=== PATIENT | male | born 1935 | race Caucasian/White ===

== ENCOUNTER 2016-08-15 18:00 | Inpatient (IN) | payer MEDICARE ==
[~2016-08-15] VITALS: Ht 177.8 cm; Wt 86.8 kg
--- NOTE | ~2016-08-15 | CATH ---
Cardiac Diagnostic + PCI Report Demographics Patient Name ALEXIS Mcclure Gender Male Date of 1935 Age 80 year(s) Patient Number [id number] Date of Study 08/18/2016 Visit Number [id number] Room Number G6321 [place] [id number] Ht 177.8 cm Wt 91.17 kg Referring Pia Navarrete MD Primary Physician Physician Performing Ya Secondary Physician Physician Monica BROWN Diagnostic Ya Assisting Physician Physician Monica BROWN Interventional Ya Physician Accounting Consultant Physician Monica BROWN Findings and Conclusions Diagnostic Findings and Conclusion LVEDP 8 Distal RCA stent. Mid RCA flap lesion with sluggish distal flow. So it was stented as well. Diagnostic Recommendations PCI of distal and mid RCA Interventional Findings and Conclusion Successful PCI of the distal RCA coronary artery using a Drug Eluting stent. Successful PCI of the mid RCA coronary artery using a Bare Metal stent. Interventional Recommendations DAPT x one year. Aggressive secondary precautions measures. Staged PCI of mid LAD lesion in 6 t o 8 weeks. Procedure Description The patient was brought to the diagnostic cardiac catheterization-EP laboratory in the fasting, non-sedated state. Informed consent was obtained in the written and verbal form after the risks and benefits were explained. The patient had no further questions and agreed to proceed. The planned puncture-incision site(s) were shaved and prepped with ChloraPrep and draped in the usual sterile manner. Conscious sedation, supplemental oxygen, and pain control medications were delivered by a registered nurse under physician guidance. Surface ECG rhythm, blood pressure measurement, and pulse oximetry were monitored throughout the procedure. Arterial access. The access site was infiltrated with lidocaine. The vessel was entered with the Seldinger technique. A sheath was advanced into the vessel and used for catheter placement. Selective left coronary angiography. A catheter was advanced into the left coronary vessel ostium under Fluoroscopic guidance. Contrast was injected by hand. Images were obtained in multiple projections. Selective right coronary angiography. A catheter was advanced into the right coronary vessel ostium under fluoroscopic guidance. Contrast was injected by hand. Images were obtained in multiple projections. Left heart catheterization. A catheter was advanced across the aortic valve to the left ventricle under fluoroscopic guidance. Resting hemodynamics were obtained. Angioplasty and Stent Placement: A guiding catheter was used to intubate the vessel. A 0.14 wire was then used to cross the lesion. A balloon catheter was placed across the lesion and inflated. The balloon catheter was then removed. A Drug Eluting Stent and bare metal was placed and inflated. Post placement angiograms were performed. Arterial artery hemostasis was achieved. The patient was transferred to a regular nursing floor via cart accompanied by a nurse. The patient left the laboratory in stable condition. Diagnostic Cath Status: Urgent Interventional Cath Status: Urgent Procedure Procedure Type Diagnostic procedure:Angiography:, Coronary Angios w/[facility] PCI procedure:Drug Eluting Coronary Stent:, RCA, Bare Metal Coronary Stent:, RCA, PTCA:, RCA Indications: Non-ST elevation WV. The procedure was explained in detail to the patient. Risks, complications and alternative treatments were reviewed. Written consent was obtained. Medications Reviewed with Patient prior to Procedure. Angiographic Findings Dominance: Right Cardiac Arteries and Lesion Findings LMCA: Abnormal. Lesion on LMCA: 20% stenosis . LAD: Abnormal.Distal 2/3 of LAD is very Small Lesion on Mid LAD: 70% stenosis .The lesion was diffuse. LCx: Abnormal.The 1st ob Ana is a small caliber vessel. The 2nd ob Ana is a small caliber vessel. The 3rd ob Ana is a small caliber vessel. The 4th ob Ana is a small caliber vessel. The 5th ob Ana is a small caliber vessel. The 6th ob Ana is a large caliber vessel. Has a patient stent The 3rd ob Ana appears normal.There is a previous stent on Mid CX Mid subsection showing wide patency. There is a previous stent on 3rd Ob Ana Proximal subsection showing wide patency. Lesion on Mid CX: 50% stenosis .The lesion was diffuse. RCA: Abnormal.The R PL has moderate diffuse irregularities. The R PDA has a total occlusion in the proximal portion of the vessel. Lesion on Dist RCA: Distal subsection.90% stenosis 12 mm length reduced to 0%. Pre procedure KISHA III flow was noted. Post Procedure KISHA III flow was present. The guidewire cross was successful.The lesion was diagnosed as a moderate risk lesion.The lesion showed evidence of thrombus presence.Culprit lesion. Devices used - Luge Wire .014 x 182. Number of passes: 1. - Emerge Balloon 2.5 x 12. 1 inflation(s) to a max pressure of: 6 jade. - Promus Premier 3.0 x 12 Stent. 1 inflation(s) to a max pressure of: 11 jade. Lesion on Mid RCA: Mid subsection.20% stenosis 16 mm length reduced to 0%. Pre procedure KISHA II flow was noted. Post Procedure KISHA III flow was present. The guidewire cross was successful.The lesion was diagnosed as a moderate risk lesion.The lesion showed evidence of thrombus presence. Treatment results:Dissection occurred while intervening.It was treated with a stent. Devices used - [place] Catheter. Number of passes: 1. - 4.0 x 16 Rebel Stent. 1 inflation(s) to a max pressure of: 11 jade. Lesion on 1st RPL: 40% stenosis .The lesion was diffuse. Lesion on R PDA: Ostial.100% stenosis .Chronic total occlusion. Comments:retro grade flow from left system Cardiac Collaterals - Goodcollateral flow from the Dist CX to the R PDA. Coronary Tree Procedure Data Procedure Date Date: 08/18/2016Start: 01:41 PMEnd: 03:33 PM Entry Locations - Retrograde Percutaneous access was performed through the Right Femoral artery (Primary location). A 7 Fr sheath was inserted. Unsuccessful closure attempts were performed using: Perclose ProGlide (Lucas) and Manual Compression. Hemostasis was successfully obtained using a Femstop. Closure Comments: Perclosed failed. Manual pressure by Solomon. Femostop placed at 60mmHg. Procedure Medications Order and Administration + + + + + !Time !Medication !Dosage !Route ! + + + + + !08/18/2016 01:36 !Fentanyl !50 mcg !I.V. ! !PM ! ! ! ! + + + + + !08/18/2016 01:41 !Oxygen !2 l/min !NC ! !PM ! ! ! ! + + + + + !08/18/2016 01:49 !D5W !75 ml/hr !I.V. drip ! !PM ! ! ! ! + + + + + !08/18/2016 02:06 !Angiomax (Bivalirudin) !65 mg !I.V. bolus ! !PM !(ACC_5) ! ! ! + + + + + 08/18/2016 02:06 !Angiomax (Bivalirudin) !1.75 mg/kg/hr!I.V. drip ! !PM !(ACC_5) ! ! ! + + + + + !08/18/2016 02:21 !Integrilin (ACC_7) !15.8 mg !I.V. bolus ! !PM ! ! ! ! + + + + 08/18/2016 02:26 !Atropine !0.5 mg !I.V. ! !PM ! ! ! ! + + + + + !08/18/2016 02:27 !D5W !300 ml !I.V. drip ! !PM ! ! ! ! + + + + 08/18/2016 02:29 !Nitroglycerin !200 mcg !I.C. ! !PM ! ! ! ! + + + + + 08/18/2016 02:31 !Integrilin (ACC_7) !15.8 mg !I.V. bolus ! !PM ! ! ! ! + + + + + !08/18/2016 02:33 !Integrilin (ACC_7) !2 mcg/kg/min !I.V. drip ! !PM ! ! ! ! + + + + + !08/18/2016 02:53 !Angiomax (Bivalirudin) ! !I.V. drip ! !PM !(ACC_5) ! ! ! + + + + + !08/18/2016 02:54 !Brilinta (Ticagrelor) !180 mg !P.O. ! !PM !(ACC_20) ! ! ! + + + + + !08/18/2016 02:54 !Baby Aspirin (ACC_4) !324 mg !P.O. ! !PM ! ! ! ! + + + + + Devices Used - A6 Fr. BS JR 4 Diag. Catheterwas used for:Right coronary angiography. - A6 Fr. BS JL 4 Diag. Catheterwas used for:Left coronary angiography. - A6 Fr. JR4 Guide Catheterwas used for:RCA Intervention. - A6 Fr. Guidliner. Contrast Material - Isovue 420782 ml Fluoroscopy Time: Diagnostic: 20:30 minutes. Total: 20:30 minutes. Fluoroscopy Dose: Diagnostic: 4191 mGy. Total: 4191 mGy. Estimated Blood Loss: 15 ml. Additional [facility] PCI Information PCI Indication:PCI for high risk Non-STEMI or unstable angina. Medical History Allergies - Other:(influenza vaccine). Risk Factors The patient risk factors include:prior PCI on 12/06/2006;cerebrovascular disease, hypertension, family history of premature CAD, insulin-treated diabetes mellitus, chronic lung disease, last creatinine: 1.5 mg/dl, creatinine clearance: 49.81 ml/min, dyslipidemia, former tobacco use and prior W[place] . Admission Data Admission Date: 08/15/2016 Admission Time: 10:34 PM Admit Source: Emergency department Insurance Payors: Medicare. Admission Medications + +------+------+ + + + + !Medication !Dosage!Times !Last !Last !Administered !Comments ! ! ! !Per !Delivery !Delivery ! ! ! ! ! !Day !Date !Time ! ! ! + +------+------+ + + + + !Beta ! ! ! ! !Yes ! ! !Becca ! ! ! ! ! ! ! !(any) ! ! ! ! ! ! ! + +------+------+ + + + + Clinical Evaluation Leading to Procedure - Anti-anginal medications were prescribed during the past two weeks. The medication is: Beta Blockers. Hemodynamics Condition: Rest O2 Consumption: Estimated: 256.28Heart Rate: 93 bpm Pressures (mmHg) +-----+ + !Site !Pressure ! +-----+ + !LV !117/2 ,9 ! +-----+ + !LV !126/3 ,7 ! +-----+ + !AO !129/48 (82) ! +-----+ + !LV !128/3 ,8 ! +-----+ + !AO !124/47 (79) ! +-----+ + !AO !137/51 (87) ! +-----+ + !AO !122/36 (64) ! +-----+ + Valve Gradients and Areas + +---------+---------+---------+ +---------+ + !Valve !Peak !Mean !Area !Index !Flow !Source ! + +---------+---------+---------+ +---------+ + !Aortic !0 !0 ! ! ! ! ! + +---------+---------+---------+ +---------+ + !Aortic !0 !0 ! ! ! ! ! + +---------+---------+---------+ +---------+ + Shunts Oxygen Values O2 Capacity 116.96 O2 Consumption 256.28 Discharge Data Discharge Date: 08/19/2016 Hospital Status: Inpatient Signatures dtt: Monica Pandya dtd: 08/18/16 1341 Physician Self Edit
--- NOTE | ~2016-08-15 | DS ---
PATIENT'S NAME: CHARLI ESPINOZA [facility] AGE: 80 Y [address] ROOM: G6321 [place], [place] [address] LOCATION: GPCU ADMIT DATE: 08/15/2016 Discharge Summary DISCHARGE DATE: 08/19/2016 FAMILY PHYSICIAN: Landon Palacio MD ATTENDING PHYSICIAN: Syed Alba CONTINUATION: LABORATORY DATA: Total cholesterol 164, triglyceride 161, HDL 39, LDL 93. INR 1.02. UA: Leukocytes negative, nitrites negative, blood negative, serum iron 32, TIBC 180, transferrin saturation 18, vitamin B12 of 397. Cortisol test 17, then 30 minutes 27.5, and an hour 33.6. Homocystine level 24.6. MICROBIOLOGY DATA: H. pylori negative. Stool for occult blood negative x2. RADIOLOGY DATA: Chest x-ray is reported as no acute infiltrate identified on the frontal chest study. Stable radiographic appearance since prior imaging. CT abdomen and pelvis is reported as scattered colon diverticula with no CT findings of diverticulitis. Past surgery at the sigmoid colon, prostate enlargement, vascular calcifications, atrophic changes of the kidneys. No free air with no findings of bowel obstruction or appendicitis. Echocardiogram: Ejection fraction 65% to 70%, diastolic grade 1 dysfunction, mild LVH, inferior hypokinesis, mild thickening of the mitral valve leaflets, mild mitral annular calcification, PA pressure 47.19. HOSPITAL COURSE: For history of present illness, please take a look at H and P, which was done by Dr. Alba. The patient was admitted to progressive care unit with a presentation of nausea and vomiting as well as abdominal pain. Because of this, the patient did get a GI consult. After the patient was evaluated by GI, they recommended no intervention as the patient had recently had an EGD and a colonoscopy done about 2 to 3 weeks prior to admission. The EGD essentially showed chronic gastritis, and the colonoscopy was essentially unchanged, which showed some diverticula. The patient also did get a CT abdomen and pelvis, which did not show anything acute that could be responsible for his nausea and vomiting and also his abdominal pain. By the next day of his hospital stay, his symptoms had resolved, and we did also get a Cardiology consult given the elevation in his troponin. Adrenal insufficiency was also ruled with cosyntropin test given his symptom of nausea, vomiting, as well as abdominal pain, and given the fact that the had abruptly stopped the prednisone, which the patient was on chronically for his polymyositis. However, the patient was already on a taper dose of 0.5 mg. However, the cosyntropin test was negative. He did also develop some pancytopenia, which was attributed to his methotrexate, which he is on for his polymyositis. However, the pancytopenia did improve prior to discharge. A PATIENT'S NAME: CHARLI ESPINOZA [facility] AGE: 80 Y [address] ROOM: [address] [place] [id number] LOCATION: GPCU ADMIT DATE: 08/15/2016 Discharge Summary DISCHARGE DATE: 08/19/2016 FAMILY PHYSICIAN: Landon Palacio MD ATTENDING PHYSICIAN: Syed Alba day prior to discharge, the patient was taken into the label remover and a left heart catheterization was done with stent placement, and he was subsequently also discharged home on Brilinta. The procedure was well tolerated by the patient, and first day postprocedure, the patient was in a stable clinical condition. His kidney function remained stable following the cardiac cath even though he did present with acute kidney injury on chronic kidney disease, which improved with this hospital stay. First day postprocedure, vital signs remained stable. Kidney function remained stable. The patient had no complaints, and he was discharged home. The patient also did get an overnight trend ox done during his hospital stay as he required most nights at least 1 L of nasal cannula. However, he did not qualify for night use of oxygen. DISCHARGE INSTRUCTIONS: Includes the patient is to follow with Dr. Fontana in the next 1 week to evaluate the patient for abdominal angina, and also the patient is to follow up with Dr. Pandya in the next 2 weeks and with his family doctor in the next 1 week as well. MEDICATIONS ON DISCHARGE: 1. Potassium chloride 20 mEq p.o. daily, dose change. 2. Allopurinol 300 mg p.o. daily. 3. Coreg 12.5 mg p.o. twice daily. 4. Peridex 15 mL p.o. twice daily. 5. Vitamin D 1000 units p.o. daily. 6. Aspirin 81 mg p.o. daily, new medication. 7. Lipitor 80 mg p.o. daily, new medication. 8. Abreva as directed, new medication. 9. Insulin aspartate 18 units subcu 3 times daily with meals. 10. Insulin detemir 40 units subcu q.h.s. 11. Hydrocortisone cream topically twice daily, new medication. 12. Omeprazole 40 mg p.o. daily. 13. Zoloft 100 mg p.o. daily. 14. Flomax 0.4 mg p.o. daily. 15. Methotrexate 17.5 mg p.o. every 7 days. 16. Prednisone acetate 1 drop every day. 17. Brilinta 90 mg p.o. twice daily, new medication. 18. Timolol 1 drop every day. 19. Folic acid 800 mcg p.o. daily. 20. MiraLAX 17 g p.o. twice daily. 21. Bumex 1 mg p.o. daily. LUIS TAYLOR MD PATIENT'S NAME: CHARLI ESPINOZA [facility] AGE: 80 Y [address] ROOM: [place] [address] [facility] ADMIT DATE: 08/15/2016 Discharge Summary DISCHARGE DATE: 08/19/2016 FAMILY PHYSICIAN: Landon Palacio MD ATTENDING PHYSICIAN: Syed Alba/darlyn /[id number] d: 08/19/16 2307 t: 08/27/16 1613, DISCHARGE SUMMARY
--- NOTE | ~2016-08-15 | ECHO ---
Transthoracic Echocardiography Report (TTE) Demographics Patient Name CHARLI ESPINOZA Date of Study 08/16/2016 Patient Number [id number] Visit Number [id number] Date of 1935 Room Number G6321 Accession Number [id number] Gender Male Age 80 year(s) Referring Pia Navarrete MD Police Radio Dispatcher Amber Haile [facility], Physician Anjali Mathis MD RVT Physician Interpreting Patti Storm Credit Relationship Manager Physician Clemente BROWN Supervising Ordering Physician Anjali Mathis MD, MD/MLP Nurse Stress Cook Pie Conclusions Contractility Score Summary Summary The estimated left ventricular ejection fraction is 65-70%. Mild concentric left ventricular hypertrophy. Diastolic assessment reveals Grade I diastolic dysfunction. Inferior hypokinesis. Mild mitral annular calcification. Mild thickening of the mitral valve leaflets. Mild-moderate mitral regurgitation by color Doppler. There is mild to moderate aortic regurgitation by color Doppler. The aortic valve is mildly sclerotic. Mild tricuspid regurgitation by color Doppler. There is mild pulmonary hypertension. The pulmonary pressure (RVSP) is 47.19 mmHg. Procedure Type of Study TTE procedure:2D Echocardiogram. Procedure Date Date: 08/16/2016 Start: 11:13 AM Study Location: Inpatient Portable Technical Quality: Adequate visualization Indications:Elevated Troponin. Patient Status: Routine HR: 89 bpm BP: 116/56 mmHg M-Mode/2D Measurements LV Diastolic Dimension: 3.48 cm LV Systolic Dimension: 1.89 cm LV Septum Diastolic: 1.27 cm LV PW Diastolic: 1.17 cm AO Root Dimension: 4.1 cm Cardiac Output: 5.92 l/min AV Cusp Separation: 1.9 cm LA volume: 62 ml RV Base: 2.92 cm LVOT: 2 cm RV Mid: 2.59 cm LVOT VTI: 21.2 cm RV Length: 6.32 cm LV Stroke volume: 66.57 ml TDI-S': 12.5 cm/s Doppler Measurements AV Peak Velocity: 1.09 m/s MV Peak E-Wave: 0.81 m/s AV Peak Gradient: 4.75 mmHg MV Peak A-Wave: 1.3 m/s AV Mean Gradient: 3 mmHg MV E/A Ratio: 0.62 LVOT Peak Velocity: 1.04 m/s MV P1/2t: 79 msec AV P1/2t: 296 msec TR Gradient:39.19 mmHg PV Peak Velocity: 1.35 m/s Estimated RAP:8 mmHg PV Peak Gradient: 7.29 mmHg Estimated RVSP: 47 mmHg Estimated PASP: 47.19 mmHg E' Septal Velocity: 0.05 m/s A' Septal Velocity: 0.12 m/s E' Lateral Velocity: 0.05 m/s A' Lateral Velocity: 0.12 m/s Findings Left Ventricle Mild concentric left ventricular hypertrophy. Diastolic assessment reveals Grade I diastolic dysfunction. Inferior hypokinesis. Right Ventricle Normal right ventricle structure and function. Left Atrium The left atrium is mildly dilated by LA volume index measurement. Right Atrium Normal right atrial size. Mitral Valve Mild mitral annular calcification. Mild thickening of the mitral valve leaflets. Mild-moderate mitral regurgitation by color Doppler. Aortic Valve There is mild to moderate aortic regurgitation by color Doppler. The aortic valve is mildly sclerotic. Tricuspid Valve Mild tricuspid regurgitation by color Doppler. There is mild pulmonary hypertension. The pulmonary pressure (RVSP) is 47.19 mmHg. Pulmonic Valve Normal pulmonic valve structure and function. Trivial pulmonic valve regurgitation by color Doppler. Pericardial Effusion Trivial posterior pericardial effusion. Miscellaneous The aortic root appears mildly dilated. The maximum diameter measures 4.1 cm. The ascending aorta appears mildly dilated. The maximum diameter measures 3.6 cm. Pleural Effusion No evidence of pleural effusion. Contractility Score LV regional wall motion:(0-Non visualized 1-Normal 2-Hypokinesis 3-Akinesis 4-Dyskinesis 5-Aneurysm) Signature dtt: Ansley Armstrong dtd: 08/16/16 1113 Physician Self Edit
--- NOTE | ~2016-08-15 | CON ---
PATIENT'S NAME: CHARLI OLIVAREZ [facility] AGE: 80 Y [address] ROOM: [address] [place], [place] [address] LOCATION: GPCU ADMIT DATE: 08/15/2016 Consultation DISCHARGE DATE: FAMILY PHYSICIAN: SASHA DU MD ATTENDING PHYSICIAN: MARIPOSA MITCHELL DATE OF CONSULTATION: 08/16/2016 REFERRING PHYSICIAN: KUNAL NORRIS MD Patient of the hospitalist. Dear Colleague: Thank you for asking me to see Mr. Olivarez whom I have taken care of in the past. He was feeling reasonably well about 3 to 4 months back. Prior to that, he had diagnosis of polymyositis made by Dr. Curtis, and later Dr. Gilman has been treating him for that with methotrexate and prednisone. This has been going on for about 10 years, and his prednisone dose has been slowly reduced and taken away. For the past 3 to 4 months, he has had abdominal pain, anemia, and recurrent hospitalization for abdominal pain with negative upper GI, lower GI workup, and CT of the abdomen. He has been treated as diverticulosis and his abdominal pain has reoccurred. He has also been anemic and has required 2 blood transfusions. At this time, when he came in with abdominal pain, a troponin elevation of significance was noted, and his echo showed mild LVH with inferior wall hypokinesia. This is the main reason for the consultation. His abdominal pain is now better, and he has an occasional diarrhea and some vomiting. The patient denies any chest pains or shortness of breath. He has been in functional class II with no paroxysmal nocturnal dyspnea or orthopnea. There is no history of lightheadedness, syncope, or palpitation. He is dizzy. There is some ankle swelling. The patient has a history of hypertension, type 2 diabetes, elevated cholesterol. He quit smoking 30-40 years ago. He has significant family history of premature coronary artery disease in his father who had an HI at age of 57. The patient had an HI in 2002 and had a PCI done at that time. Four years later, he had another PCI done. He has been doing reasonably well since then. He has been completely off statins at this time. He denies rheumatic fever. He has been told of a heart murmur. He has a history of heart failure, but no atrial fibrillation. PATIENT'S NAME: CHARLI OLIVAREZ [facility] AGE: 80 Y [address] ROOM: [place] [address] LOCATION: GPCU ADMIT DATE: 08/15/2016 Consultation DISCHARGE DATE: FAMILY PHYSICIAN: SASHA DU MD ATTENDING PHYSICIAN: MARIPOSA MITCHELL MEDICATIONS: 1. Coreg 12.5 b.i.d. 2. Omeprazole 40 mg a day. 3. Tamsulosin 0.4 mg a day. 4. Sertraline 100 mg daily. 5. Methotrexate 2.5 mg 7 tablets every 7 days. 6. Insulin Levemir 40 units subcu at bedtime. 7. Prednisolone drops. 8. Timolol drops. 9. Vitamin D3 1000 units a day. 10. Folic acid 800 mcg a day. 11. MiraLAX. 12. Insulin 18 units subcu t.i.d. 13. Allopurinol 300 mg a day. 14. Chlorhexidine. 15. Bumex 2 mg a day. 16. Cholecalciferol. 17. Potassium chloride 20 mEq a day. ALLERGIES: INFLUENZA VIRUS VACCINE. PAST MEDICAL HISTORY: 1. Right leg fracture x3. 2. Both shoulder surgery. 3. Retinal detachment operated bilaterally. 4. Bilateral cataract extraction. 5. Legally blind. 6. Polyp and part of the colon removed. 7. Finger amputated. 8. Toe amputated. 9. Hydrocele. 10. BPH. 11. CTS. 12. COPD. SOCIAL HISTORY: The patient is . He denies abusing alcohol. His appetite and weight have not been the best, and he has lost about 12 pounds in a month since his colonoscopy has developed some blisters in his mouth. His sleep is fair. FAMILY HISTORY: Positive for premature coronary artery disease. REVIEW OF SYSTEMS: PATIENT'S NAME: CHARLI OLIVAREZ [facility] AGE: 80 Y [address] ROOM: [place] [address] LOCATION: GPCU ADMIT DATE: 08/15/2016 Consultation DISCHARGE DATE: FAMILY PHYSICIAN: SASHA DU MD ATTENDING PHYSICIAN: MARIPOSA MITCHELL 12-point review of systems reveal: 1. Some dementia. 2. TIA. 3. CVA. 4. Nose runs. 5. Tinnitus. 6. Hard of hearing. 7. Slow urinary stream. 8. Arthritis. 9. Skin source. 10. Pressure sores. PHYSICAL EXAMINATION: VITAL SIGNS: On examination, his blood pressure is 120/80, heart rate is in the 90s and regular, respirations 18, afebrile. HEENT: Normal. NECK: Supple with no JVD, thyromegaly, lymphadenopathy, or carotid bruit. HEART: PMI is not well located. First and second heart sounds are regular. There are no added sounds. He does have a grade 2/6 systolic murmur best heard in the left sternal edge. CHEST: Clear to auscultation. ABDOMEN: Soft and nontender. EXTREMITIES: Reveal no edema. CENTRAL NERVOUS SYSTEM: Intact. ASSESSMENT: 1. Dvo-PZ-qpnridc elevation myocardial infarction as his 12-lead EKG does not reveal ST elevation. 2. Abdominal pain, nausea, and vomiting. RECOMMENDATION: When his creatinine is somewhat improved from 1.8 where he is at now and his anemia is a little bit better, I will probably recommend doing a catheterization. At this time, he does not have any chest pain, so we will monitor him carefully. As to when and how the oqr-UJ-[id number] elevation HI occurred is hard to tell. Again, I appreciate this opportunity to participate in the care of Mr. Olivarez. DENIS ESPINAL MD AMK/donovanl PATIENT'S NAME: CHARLI OLIVAREZ [facility] AGE: 80 Y [address] ROOM: [address] [place] [address] LOCATION: GPCU ADMIT DATE: 08/15/2016 Consultation DISCHARGE DATE: FAMILY PHYSICIAN: SASHA DU MD ATTENDING PHYSICIAN: MARIPOSA MITCHELL /[id number] d: 08/17/16 0036 t: 08/22/16 1215, CONSULTATION REPORT
--- NOTE | ~2016-08-15 | CON ---
PATIENT'S NAME: CHARLI ESPINOZA [facility] AGE: 80 Y [address] ROOM: [address] [place], [place] [address] LOCATION: GPCU ADMIT DATE: 08/15/2016 Consultation DISCHARGE DATE: FAMILY PHYSICIAN: SASHA DU MD ATTENDING PHYSICIAN: MARIPOSA MITCHELL DATE OF CONSULTATION: 08/16/2016 REFERRING PHYSICIAN: KUNAL NORRIS MD REASON FOR CONSULTATION: Nausea, vomiting, and abdominal pain. HISTORY OF PRESENT ILLNESS: This is a very pleasant 80-year-old gentleman, who is a slight poor historian. His is at bedside as most of history was obtained from the . The patient states in June, he was hospitalized at [facility] with diverticulitis. He did require blood transfusion for unclear source. The patient subsequently had an endoscopy as well as a colonoscopy on July 25, 2016, per Dr. Virgilio Whitaker. At that time, the patient was found to have antral hemorrhagic gastritis as well as anastomosis site evaluated at 18 cm from previous resection. Biopsies were negative for H. pylori as well as celiac disease. On August 02, he subsequently had 2 more units of packed red blood cells as it remains unclear for the anemia. The patient currently denied any nausea or vomiting. Since being admitted, he denies any fever or chills. He does state that his appetite has slightly decreased. He denies any obvious signs of coffee-grounds emesis, hematemesis, hematuria, or hematochezia. Since undergoing the upper endoscopy, he did develop vesicles and blisters that ruptured in both his upper and lower lips as he does state that he has some painful swallowing secondary to these blisters. The patient's daughter was at bedside, stated that this began at the back of his mouth and has moved forward since. He currently denies any chest pain, chest pressure, shortness of breath, fever, or chills. PAST MEDICAL HISTORY: Coronary artery disease, status post 2 drug-eluting stents placed in the past, one placed in 2002 and second was placed in 2006; history of myocardial infarction in 2002; hyperlipidemia; reported history of CHF; questionable obstructive sleep apnea; questionable COPD; chronic kidney disease stage 3, diabetes mellitus type 2; hypertension; prior history of ischemic stroke without any obvious neurological deficit; and benign prostatic hypertrophy. PAST SURGICAL HISTORY: Recent upper endoscopy and colonoscopy on July 25, 2016; status post drug- eluting stent in the heart, 2 stents, in 2002 and 2006; bilateral hydrocele, status post surgery; status post polypectomy and colectomy according to the PATIENT'S NAME: CHARLI ESPINOZA [facility] AGE: 80 Y [address] ROOM: [address] [place], [place] [address] LOCATION: [facility] ADMIT DATE: 08/15/2016 Consultation DISCHARGE DATE: FAMILY PHYSICIAN: SASHA DU MD ATTENDING PHYSICIAN: MARIPOSA MITCHELL patient's in the past, though these reports are unavailable to us at this time; status post left rotator cuff surgery in the past; and history of amputation of the left fifth toe in the past due to osteomyelitis. SOCIAL HISTORY: The patient is . He denies any current tobacco use. He is a former smoker, though quit many years ago. He denies any alcohol or illicit drug use. FAMILY HISTORY: Both parents had coronary artery disease. He denies any known gastrointestinal diseases or cancer. ALLERGIES: INFLUENZA VIRUS. CURRENT MEDICATIONS: Please refer to the medication administration record. REVIEW OF SYSTEMS: All point review of systems was completed. All were negative except for those identified in the history of present illness. PHYSICAL EXAMINATION: GENERAL: A pleasant 80-year-old male, who appears to be in no acute distress. VITAL SIGNS: Temperature 97.8, pulse of 85, respirations of 14, blood pressure 134/63, and oxygen saturations 98% on 1 L. SKIN: [place], warm, and dry. No jaundice. HEENT: Head is normocephalic and atraumatic. Pupils are equal, round, and reactive to light. Sclerae are clear. Nonicteric. Oral mucosa is pink. Vesicles and redness noted to open sores in mouth. NECK: Soft and supple. CARDIOVASCULAR: Regular. Normal S1 and S2. RESPIRATORY: Respirations even and unlabored. LUNGS: Clear to auscultation. ABDOMEN: Soft. Round. Mildly tender in the right and left lower quadrant. No rebound, rigidity, or guarding noted. Bowel sounds positive x4 quadrants. MUSCULOSKELETAL: No muscle weakness or atrophy. EXTREMITIES: No clubbing, cyanosis, or edema. NEUROLOGIC: Grossly nonfocal. LABS AND DIAGNOSTICS: Cardiac enzymes are elevated. On admission, troponin I was 1.130. BNP was 2531. White blood cell count 4.5; hemoglobin on admission was 9.8, down to 8.5; hematocrit of 30.3; MCV of 100.0; and platelets of 104. Chemistry panel PATIENT'S NAME: CHARLI ESPINOZA [facility] AGE: 80 Y [address] ROOM: [address] [place], [place] [address] LOCATION: GPCU ADMIT DATE: 08/15/2016 Consultation DISCHARGE DATE: FAMILY PHYSICIAN: SASHA DU MD ATTENDING PHYSICIAN: MARIPOSA MITCHELL includes a glucose of 143, BUN of 58, creatinine of 1.8, sodium 142, potassium of 4.5, chloride 104, and CO2 of 29. Liver enzymes are within normal limits. Pro-time 10.7, INR is 1.02, and PTT of 26. Current iron studies are pending at this time. CRP is 8.51. TSH is 0.447. Procalcitonin is 0.15. The patient also underwent a CT of the abdomen and pelvis completed on admission. This did show scattered colon diverticula with no CT findings of diverticulitis, past surgery of the sigmoid colon, prostate enlargement, vascular calcifications, atrophic changes of the kidneys, no free air with no findings of bowel obstruction or appendicitis. ASSESSMENT AND PLAN: Again, this is a very pleasant 80-year-old male, who was admitted with nausea, vomiting, and abdominal pain. 1. Nausea. The patient states that this is subsided at this point. The patient currently had been on omeprazole at home, though we do recommend changing this to Protonix as the patient was recently found to have antral gastritis with hemorrhage. 2. Anemia. Clear etiology of the patient's anemia is unknown. Further workup to be completed. Current iron studies are pending at this time. Some blood loss may be secondary to his antral gastritis, though further workup is warranted after receipt of complete laboratory. 3. Lower abdominal pain. CT was negative for any acute findings. Continue monitoring at this time. 4. Elevated cardiac enzymes. The patient is pending Cardiology consultation. At this time, no intervention is warranted as he recently underwent an upper endoscopy and colonoscopy. We will await for further recommendations from Cardiology for further intervention as well. Thank you for this consult. TERRANCE CURRY APRN FOR MD STANISLAW LAUGHLIN/modl /[id number] d: 08/16/161955 t: 08/22/16 1514, CONSULTATION REPORT
--- NOTE | ~2016-08-15 | DS ---
PATIENT'S NAME: CHARLI ESPINOZA [facility] AGE: 80 Y [address] ROOM: [place] [address] LOCATION: GPCU ADMIT DATE: 08/15/2016 Discharge Summary DISCHARGE DATE: 08/19/2016 FAMILY PHYSICIAN: Landon Palacio MD ATTENDING PHYSICIAN: Syed Alba PRIMARY DIAGNOSES: 1. Non-ST segment elevation myocardial infarction. 2. Pancytopenia. 3. Cold ulcers. 4. Nausea and vomiting. 5. Hypernatremia. 6. Acute kidney injury on chronic kidney disease, stage 3. 7. Coronary artery disease. 8. Acute hypoxic respiratory failure. PRINCIPAL PROCEDURES DONE FOR PATIENT: Include 1. Left heart catheterization with stent placement by Dr. Pandya. 2. Also, transfusion with one unit of PRBC. LABORATORY DATA: Labs on admission: ABG: The pH of 7.39, pCO2 of 51, pO2 of 38, and saturations of 71%. Troponin highest level was 1.130, CPK was 83, and proBNP on admission was 2531 with B12 of 2318. WBC on admission was 10.4 and prior to discharge was 6.2, last level obtained was 3.6. H and H on admission was 9.8/30.3 and prior to discharge was 9.1/28.2. Platelets on admission was 154 and prior to discharge was 107. Creatinine on admission was 1.8 and prior to discharge was 1.4, sodium on admission was 142; highest level obtained was 146; and prior to discharge was 144, potassium on admission was 4.5 and was stable throughout the hospital stay. Liver function test was stable throughout the hospital stay. Upon discharge, AST was 46, ALT was 25, and alkaline phosphatase was 53. ESR was 26. Hemoglobin A1c was 7.0. Lipid Panel: Total cholesterol was 164. DICTATION ENDS HERE PATIENT'S NAME: CHARLI ESPINOZA [facility] AGE: 80 Y [address] ROOM: [place] [address] LOCATION: GPCU ADMIT DATE: 08/15/2016 Discharge Summary DISCHARGE DATE: 08/19/2016 FAMILY PHYSICIAN: Landon Palaico MD ATTENDING PHYSICIAN: Syed Alba MD FRANCINE NIXON/darlyn /[id number] d: 08/19/16 2248 t: 08/27/16 1611, DISCHARGE SUMMARY
--- NOTE | ~2016-08-15 | ER ---
PATIENT'S NAME: CHARLI SEPINOZA [facility] AGE: 80 Y [address] ROOM: [address] [address] LOCATION: [facility] ADMIT DATE: 08/15/2016 ER/Outpatient Report DISCHARGE DATE: FAMILY PHYSICIAN: SASHA DU MD ATTENDING PHYSICIAN: MARIPOSA MITCHELL CHIEF COMPLAINT: Abdominal pain, nausea, and vomiting. HISTORY OF PRESENT ILLNESS: This patient is an 80-year-old male who comes in with a 2 to 3-day history of generalized abdominal pain, nausea, and vomiting. The patient is vomiting 2 to 3 times a day. Unable to keep things down on what he normally does. The patient has had some problems with bowel movements and urinating. Does have a history of benign prostatic hypertrophy. Does not have diarrhea, has had no blood in his stool. Had previous diverticular problems with partial sigmoid colon resection by history. The patient does have a history of heart related problems with coronary artery disease, carotid occlusive disease, peripheral vascular disease, hypertension, previous myocardial infarction, CVA, TIAs, and congestive heart failure. He also has lung problems with COPD with former tobacco abuse. No coughs, colds, or flus. No fever, chills, sweats, or rigors. No fall or trauma. No headache, eyes, ears, nose, throat, neck, or spine pain. No lightheadedness, dizziness. Very weak and having to have a lot of assistance with any positional changes, transferring, and ambulating. No chest pain or shortness of breath. Problems getting the stream started, but no dysuria, urgency, or frequency. Does have some peripheral swelling, but no joint muscle redness. Does have a history of gout. No skin eruptions or rash. Does have depression. No psychosis. Does have insulin-dependent diabetes mellitus. No other endocrine problems. HOME MEDICATIONS: See attached medication list. ALLERGIES: INFLUENZA VACCINE. SOCIAL HISTORY: Nonsmoker. Occasional intake of alcohol. SIGNIFICANT PAST MEDICAL HISTORY: 1. Atherosclerotic ischemic heart disease with coronary artery disease, status post myocardial infarction. 2. Peripheral vascular disease. 3. Carotid occlusive disease. 4. Valvular heart disease with an aortic regurgitation and mitral valve PATIENT'S NAME: CHARLI ESPINOZA [facility] AGE: 80 Y [address] ROOM: [address] [place], [place] [address] LOCATION: GPCU ADMIT DATE: 08/15/2016 ER/Outpatient Report DISCHARGE DATE: FAMILY PHYSICIAN: SASHA DU MD ATTENDING PHYSICIAN: MARIPOSA MITCHELL regurgitation. 5. Insulin-dependent diabetes mellitus, type 2. 6. Gastroesophageal reflux. 7. Gout. 8. Congestive heart failure. 9. COPD. 10. Hypertension. 11. Dyslipidemia. 12. CVA. 13. TIA. 14. Gastroparesis. 15. Chronic kidney disease. 16. Rheumatoid arthritis. 17. Anemia of chronic disease. 18. Vitamin D deficiency. 19. Myositis. 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 21. Diabetic nephropathy. 22. Exogenous obesity. 23. Diverticulosis. 24. Colon polyps. 25. Degenerative osteoarthritis. 26. Pulmonary hypertension. 27. Remote tobacco abuse. 28. Glaucoma. 29. Benign prostatic hypertrophy. PAST SURGICAL HISTORY: Operations: 1. Bilateral shoulder surgery. 2. Cardiac catheterization with PTCA and stenting. 3. Left carpal tunnel release. 4. Hydrocele repair. 5. Sigmoid resection for diverticulosis. 6. Cataract extraction. 7. Muscle biopsy. 8. Colonoscopy. REVIEW OF SYSTEMS: All systems reviewed by me are negative with the exception of those discussed in the History of the Present Illness. PHYSICAL EXAMINATION: VITAL SIGNS: Temperature 97.3, tympanic; pulse 92; respiratory rate 16; blood pressure 158/70; and O2 saturation on room air is 94%. PATIENT'S NAME: CHARLI ESPINOZA [facility] AGE: 80 Y [address] ROOM: [place] [address] LOCATION: GPCU ADMIT DATE: 08/15/2016 ER/Outpatient Report DISCHARGE DATE: FAMILY PHYSICIAN: SASHA DU MD ATTENDING PHYSICIAN: MARIPOSA MITCHELL HEENT: Head; normocephalic. No abrasion, contusion, laceration, or swelling of the scalp or face. Eyes; extraocular muscles intact. PERRL. Sclerae and conjunctivae clear, nonicteric. Ears; clear TMs bilaterally. Nose and Throat; clear. Mucous membranes moist. NECK: No nuchal rigidity. No thyromegaly or cervical lymphadenopathy. LUNGS: Clear. No rales, rhonchi, or wheezes. HEART: Regular. Pulses are palpable. No chest wall or ribcage pain to palpation. ABDOMEN: Obese, soft. Kind of generalized tenderness to deep palpation. No true guarding or rigidity. No rebound tenderness. No evidence of surgical abdomen. Bowel tones present. No organomegaly or abnormal mass palpable. No CVA tenderness. EXTREMITIES: The patient has edema, has a wrap on his right lower extremity, did not remove the wrap. No deformities. No cyanosis. NEUROLOGIC: Neurovascularly intact. The patient is awake, alert, cooperative, and oriented. SKIN: Clear. No skin eruptions. LABORATORY DATA AND IMAGING STUDIES: EKG; showed sinus rhythm. Nonspecific changes. No ST elevation, ischemic change, or arrhythmia. Chest x-ray showed no acute infiltrates or changes. We will review x-ray with the radiologist. Laboratory: CPK was normal x2, 2 hours apart. CK-MB was normal x2, 2 hours apart. Troponin was initially elevated at 1.13 and two-hour troponin was 1.07. White count was 5400, 79 segs, 1 band, 17 lymphs, 2 monos, 1 eosinophil, hemoglobin is 9.8, hematocrit is 30.3, and platelet count was 154,000. PTT was 26, prothrombin time is 10.7 with an INR of 1.02. CMS was normal except for an elevated glucose of 143, elevated BUN of 58, elevated creatinine of 1.8, low GFR of 36, and magnesium of 2.4. CRP was 8.51. Thyroid tests were normal. ProBNP was elevated at 2531. Venous pH was 7.39. Serum acetone was negative. Lactate was 1.6, procalcitonin was 0.15. Urinalysis was clear. CT scan of the abdomen and pelvis showed no acute intra- abdominal or pelvic processes, had some mild sigmoid diverticulosis without diverticulitis. Had chronic renal cortical thinning without hydronephrosis or mass. Stable prostatomegaly. No free air or free fluid. CT scan was read by Radiology, see dictated transcribed report. Sedimentation rate is elevated at 76. H. pylori was negative. EMERGENCY DEPARTMENT COURSE: I did give the patient 500 bolus of normal saline ran at 125 mL an hour. Gave him Zofran IV for nausea. Had no vomiting here in the emergency department. IMPRESSION: 1. Generalized abdominal pain with nausea and vomiting, etiology uncertain. PATIENT'S NAME: CHARLI ESPINOZA [facility] AGE: 80 Y [address] ROOM: [address] [address] LOCATION: [facility] ADMIT DATE: 08/15/2016 ER/Outpatient Report DISCHARGE DATE: FAMILY PHYSICIAN: SASHA DU MD ATTENDING PHYSICIAN: MARIPOSA MITCHELL CT scan was normal, showing no free air or free fluid, or inflammatory or infective changes. 2. Elevated troponin, cardiac marker with normal EKG. The patient does have a history of atherosclerotic ischemic heart disease with coronary artery disease, has previous myocardial infarction, and previous cardiac catheterization with stenting of his coronary arteries. 3. Congestive heart failure. 4. Peripheral vascular disease. 5. Carotid occlusive disease. 6. Valvular heart disease with aortic regurgitation and mitral valve regurgitation. 7. 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 8. Congestive heart failure with the BNP at 2530. 9. Hypertension. 10. Dyslipidemia. 11. Past history of cerebrovascular accident and transient ischemic attack. 12. Chronic renal insufficiency. 13. History of gastroparesis. 14. History of anemia of chronic disease. Hemoglobin is 9.6. Stable. 15. History of rheumatoid arthritis with degenerative osteoarthritis. 16. Depression. 17. Benign prostatic hypertrophy. 18. Remote tobacco abuse. PLAN: I did discuss the patient with Dr. Mitchell, hospitalist. We will admit the patient to PCU telemetry for further evaluation and treatment. Discussion ensued with the patient and his concerning my findings and recommendations, they understand. MD JERRI VELASQUEZ/modl /[id number] d: 08/16/16 0123 t: 08/16/16 1821, OUTPATIENT REPORT
--- NOTE | ~2016-08-15 | HP ---
PATIENT'S NAME: CHARLI ESPINOZA [facility] AGE: 80 Y [address] ROOM: [id number] [place], [place] [address] LOCATION: GPCU ADMIT DATE: 08/15/2016 History & Physical DISCHARGE DATE: FAMILY PHYSICIAN: SASHA DU MD ATTENDING PHYSICIAN: MARIPOSA MITCHELL DATE OF SERVICE: CHIEF COMPLAINT: Right lower quadrant pain, nausea, and vomiting. HISTORY OF PRESENT ILLNESS: This is an 80-year-old male who is a poor historian. I got a history directly from the patient and also from the patient's at the bedside. The story is that the patient was recently hospitalized in [facility] back in June 2016 where he was hospitalized for roughly 4 days for diverticulitis. At that time, he also required packed red blood cells transfusion from unclear source. When the patient was discharged, the left lower quadrant abdominal pain resolved. The patient subsequently had colonoscopy on July 25, 2016, where nothing was found according to the patient's and the patient. The patient also had an upper endoscopy, also on July 25, 2016. At that time, it showed gastritis according to the patient and the patient's also done in [facility]. On August 02, 2016, the patient required 2 more units of packed red blood cell transfusion. Again, they were not sure where was the anemia coming from. The patient states that he also had another colonoscopy several years ago where he had polypectomy and also colectomy as well according to the patient and the patient's . This time, about 3 or 4 days after the patient was discharged from the [facility] from diverticulitis in June 2016, the patient started to develop abdominal pain again, but at this time it is in the right lower quadrant. Intensity about 10/10 and is on and off. He cannot really tell me how long does it last when the pain is active. He says that the abdominal pain gets better with a bowel movement. He also has a very poor appetite in the last few days. He is not sure if he has a decreased urine output. He also is not sure if his urine looks darker than usual. Yesterday and today, he developed some episodes of nausea and vomiting of bilious content without any blood. His last bowel movement was this morning. It was brown color. He denies any obvious melena, hematemesis, hematuria, hemoptysis, coffee-ground emesis, or hematochezia. The patient says that ever since he had an upper endoscopy performed in [facility] on July 25, 2016, the patient has developed these vesicles and blisters that rupture in both the upper and the lower lips. He also has some pain when he swallows. The patient denies any chest pain, shortness of breath, diaphoresis, palpitation, or any other symptoms. He PATIENT'S NAME: CHARLI ESPINOZA [facility] AGE: 80 Y [address] ROOM: [address] [address] [facility] ADMIT DATE: 08/15/2016 History & Physical DISCHARGE DATE: FAMILY PHYSICIAN: SASHA DU MD ATTENDING PHYSICIAN: MARIPOSA MITCHELL chronically has a leg edema and he says his leg edema is much better than his usual baseline. The patient came here for the evaluation of the right lower quadrant abdominal pain associated with nausea and vomiting. He denies any fever or chills. REVIEW OF SYSTEMS: As mentioned in the history of present illness. All other systems were reviewed. They were negative except as mentioned in history of present illness. PAST MEDICAL HISTORY: 1. Coronary artery disease, status post 2 drug-eluting stents placed in the past. The first one was placed in 2002 and the second one was in 2006 according to the patient's . 2. Reported history of myocardial infarction back in 2002. 3. Hyperlipidemia. 4. Reported history of CHF, not sure which type. No echo available on file. 5. Questionable obstructive sleep apnea. 6. Questionable COPD. 7. CKD stage 3. 8. Diabetes type 2. 9. Hypertension. 10. Prior history of ischemic stroke without any obvious neurological deficit. 11. Benign prostatic hypertrophy. ALLERGIES: INFLUENZA VACCINE. HOME MEDICATIONS: 1. Coreg 25 mg p.o. daily. 2. Bumex 2 mg p.o. daily. 3. Omeprazole 40 mg p.o. daily. 4. Allopurinol 300 mg p.o. daily. 5. Methotrexate 25 mg once daily only on . 6. Sertraline 100 mg p.o. daily. 7. Tamsulosin 0.4 mg p.o. daily. 8. Levemir 30 units subcu once every night. 9. NovoLog sliding scale 3 times a day subcutaneous. SOCIAL HISTORY: The patient was a former cigarette smoker about 1 pack in 7 days for a few years. He quit many years ago. I am not sure how long he smoked, he could not remember. The patient denies any alcohol and also denies any illegal drug PATIENT'S NAME: CHARLI ESPINOZA [facility] AGE: 80 Y [address] ROOM: [place] [address] [facility] ADMIT DATE: 08/15/2016 History & Physical DISCHARGE DATE: FAMILY PHYSICIAN: SASHA DU MD ATTENDING PHYSICIAN: MARIPOSA MITCHELL. FAMILY HISTORY: Both parents had some kind of coronary artery disease, but he could not remember all the details. PAST SURGICAL HISTORY: 1. Status post drug-eluting stent in the heart, 2 stents; first one was placed in 2002 and second one placed in 2006. 2. Bilateral hydrocele, status post surgery in the past. 3. Status post polypectomy and colectomy according to the patient and the patient's in the past. 4. Status post left rotator cuff surgery in the past. 5. History of amputation of the left fifth toe in the past due to osteomyelitis. PHYSICAL EXAMINATION: VITAL SIGNS: At the time of my dictation, temperature 98, blood pressure 130/85, respirations 14, heart rate 85, saturation 97% on room air. GENERAL APPEARANCE: Alert and oriented x3, in no acute distress. HEENT: Pupils are equally round and reactive to light. Extraocular muscles intact. Nasal turbinates are normal bilaterally. Moist oral mucosa. NECK: No obvious JVD. CARDIOVASCULAR. Regular rate and rhythm. Normal S1, S2. I could appreciate a murmur intensity about 2 and no rubs, no gallops. RESPIRATORY: Clear to auscultation. No rales, no rhonchi, no crackles, and no wheezing. ABDOMEN: Obese, soft, mildly tender to palpation in the right lower quadrant, no finding to suggest peritonitis, no abdominal rigidity, bowel sounds are present, no hepatosplenomegaly, no ascites, no rebound tenderness. EXTREMITIES: Edema in bilateral lower extremities is chronic at baseline, much better than the baseline according to the patient and the patient's . SKIN: Stage II pressure ulcer in the left hip area and also on the right foot area. They do not look infected. No cyanosis. MUSCULOSKELETAL: No joint pain. No muscle pain. Range of motion intact. NEUROLOGIC: Grossly nonfocal. LABORATORY DATA: Venous blood gas performed on room air showed pH 7.39, pCO2 51, bicarbonate 30.9, and lactic acid 1.6. Troponin 1.130 followed by 1.070. ProBNP 2531. CPK 83 followed by 71. CK-MB 3.3 followed by 3.2. White blood cells 5.4, hemoglobin 9.8, hematocrit 30.3, MCV 100, platelets 154, glucose 143, BUN 58, creatinine 1.8. Sodium 142, potassium 4.5, chloride 104, CO2 29, calcium 9.0, total protein 6.7, albumin 3.1, AST 30, ALT 28, alkaline phosphatase 64, total bilirubin is 0.5. Magnesium 2.4, GFR 36, anion gap 13.5, globulin 3.6. ESR PATIENT'S NAME: CHARLI ESPINOZA [facility] AGE: 80 Y [address] ROOM: [place] [address] [facility] ADMIT DATE: 08/15/2016 History & Physical DISCHARGE DATE: FAMILY PHYSICIAN: SASHA DU MD ATTENDING PHYSICIAN: MARIPOSA MITCHELL 76. INR 1.02, PTT 26. Urinalysis negative for UTI. TSH 0.447, free T4 1.1. CRP 8.5. Procalcitonin 0.15. IMAGING STUDY: Chest x-ray on admission, the official report was read as no acute infiltrate. Stable radiographic appearance compared to the prior imaging. Preliminary report of the CT abdomen and pelvis without contrast on admission, the preliminary report was read as no new acute intraabdominal or pelvic process to account for the pain. Mild sigmoid diverticulosis without diverticulitis. Stable moderate-to severe chronic renal cortical thinning without hydronephrosis or suspicious mass. Stable prostatomegaly. Mild skin thickening over the coccyx is indeterminate. Correlation with physical exam for decubitus ulcer recommended. EKG on admission on August 15, 2016, at 6:50 p.m. show sinus rhythm heart rate of 89 beats per minutes, MO 168 milliseconds, QRS 114 milliseconds, QTc 480 milliseconds. Left axis deviation and I can appreciate T-wave inversion at lead aVL. No acute ST elevation or ST depression. Compared to the prior EKG back in January 23, 2016, the T inversion in aVL is chronic. ED COURSE: In the emergency room, the patient received normal saline 1 L and IV Zofran 4 mg 1 dose. ASSESSMENT AND PLAN: 1. Regarding his right lower quadrant abdominal pain associated with nausea and vomiting: I will get the medical records from the [facility] regarding the last upper endoscopy and also the colonoscopy. I will cover him with IV Protonix 40 mg p.o. b.i.d. in the setting of chronic anemia as well as previous history of gastritis on the EGD. I will get a GI consult in the morning. N.p.o. after midnight. While n.p.o., IV fluids for hydration. Normal saline at 75 mL/hr for maintenance. Please follow up with the official report of the CT abdomen and pelvis without contrast performed in the emergency room. IV Zofran for nausea or vomiting p.r.n. Further plan depends on clinical course. 2. Regarding his cold sores: I will treat him with Abreva cream 5 times per day. Further plan depends on clinical course. 3. Regarding his acute kidney injury on chronic kidney disease stage 3: I will hydrate him with normal saline 75 mL/h, put a Lezama catheter to monitor urine output, and rule out postobstructive acute kidney injury on chronic kidney disease in the setting of known benign prostatic hypertrophy. I will also get a complete abdominal ultrasound to look for any kidney anatomy abnormality or any hydronephrosis. Also, check urine electrolytes. He is on Bumex at home. Therefore, I will check the PATIENT'S NAME: CHARLI ESPINOZA [facility] AGE: 80 Y [address] ROOM: [address] [address] LOCATION: GPCU ADMIT DATE: 08/15/2016 History & Physical DISCHARGE DATE: FAMILY PHYSICIAN: SASHA DU MD ATTENDING PHYSICIAN: MARIPOSA MITCHELL fractional excretion of urea by checking the urine creatinine and urine urea. Further plan depends on clinical course. Nephrology consult could be consulted if kidney function does not improve with hydration. 4. Troponin elevation: The patient denies any chest pain. EKG showed T inversion in aVL, but it is chronic compared to the prior EKG. The patient does have a prior history of myocardial infarction with 2 stents placed in the past. In the setting of anemia requiring transfusion in the past, and anemia of unclear source, and in the absence of chest pain, I will keep cycling cardiac enzymes given that troponin is already going down. Looking back at the prior records, he does have a troponin elevation in the past as well, could be secondary to his chronic kidney disease. I will cycle cardiac enzymes every 6 hours. Get EKG in the morning again, get a transthoracic echo in the morning and for now, I am not going to start any IV heparin drip in the setting of anemia of unclear source and in absence of chest pain and in the setting that the troponin is going down. Further plan depends on clinical course. The patient has seen Dr. Pandya in the past. If Cardiology consult will be required, then Dr. Pandya could be consulted if needed. 5. Regarding his pressure ulcer stage II: He has a pressure ulcer in the left hip area and also on the right foot. I will get a Wound Care consult to keep following the patient while he is in the hospital for dressing changes. Currently, the pressure ulcer do not look infected. 6. Regarding his deep vein thrombosis prophylaxis: The patient will be getting heparin subcu 5000 units 3 times a day. 7. CODE STATUS: He is a DO NOT RESUSCITATE/DO NOT INTUBATE. Time spent on the day of admission in care 50 minutes including chart review, interviewing the patient, addressing all the questions and concerns the patient and the patient's had at the bedside, examining the patient, and also went over the plan of care in detail with the patient, the patient's , and nurses. Further plan depends on clinical course. I have answered all their questions to their satisfaction for the patient and also for the patient's . Further plan depends on clinical course. MD PIPO SANTILLAN/darlyn /[id number] D: [id number] T: 559 HISTORY & PHYSICAL
--- NOTE | ~2016-08-15 | CON ---
PATIENT'S NAME: CHARLI ESPINOZA [facility] AGE: 80 Y [address] ROOM: [id number] [place], [place] [address] LOCATION: GPCU ADMIT DATE: 08/15/2016 Consultation DISCHARGE DATE: FAMILY PHYSICIAN: SASHA DU MD ATTENDING PHYSICIAN: MARIPOSA MITCHELL DATE OF CONSULTATION: 08/16/2016 REASON FOR VISIT: Left buttocks and right heel pressure ulcer. HISTORY OF PRESENT ILLNESS: This is a pleasant 80-year-old male patient who is admitted to [facility] with nausea, vomiting, and abdominal pain. He has a significant history of type 2 diabetes mellitus, CVA, hypertension, COPD, obesity, osteomyelitis, gastroparesis, anemia of chronic disease, cellulitis, and congestive heart failure. He currently resides with his at home on [place] in [place]. He is a poor historian so history obtained from his and past medical history. The patient was hospitalized in June at [facility] with diverticulitis. His reports since his upper endoscopy he develops blisters to his mouth and is being treated for a herpes infection. She is unable to describe the exact onset of pressure ulcers, however, reports they have been present for months. She has tried Desitin to the sites in the past as well as Sensi-Care. The patient denies previous history of pressure ulcers. He is currently denying any pain except to his mouth. He does, however, have significant tenderness to his right heel with palpation. He does wear [facility] He has had candidal yeast infections in the past. He currently has a groin rash that has been present for several months and his has been applying Gold Clifford powder to the site. The patient denies fevers, chills, or sweats. He reports a poor oral intake due to mouth sores. He wears dentures. He ambulates with a walker. He currently is denying abdominal pain. He admits to fatigue and weakness. He is pleasant. PAST MEDICAL HISTORY: Type 2 diabetes mellitus, COPD, nocturnal hypoxia, hypertension, CVA, myositis, ischemic heart disease, chronic kidney disease, anemia of chronic disease, vitamin D deficiency, cellulitis, SD, diverticulitis, peripheral vascular disease, congestive heart failure, rheumatoid arthritis, gout, arthritis, osteomyelitis, pulmonary hypertension, hyperlipidemia, and BPH. PAST SURGICAL HISTORY: Cardiac stents, hydrocele, polypectomy, rotator cuff surgery, and left 5th toe amputation due to osteo. PATIENT'S NAME: CHARLI ESPINOZA [facility] AGE: 80 Y [address] ROOM: [address] [place], [place] [address] LOCATION: [facility] ADMIT DATE: 08/15/2016 Consultation DISCHARGE DATE: FAMILY PHYSICIAN: SASHA DU MD ATTENDING PHYSICIAN: MARIPOSA MITCHELL FAMILY HISTORY: Positive for heart disease and diabetes. SOCIAL HISTORY: The patient lives with his in [place]. He quit smoking in 1989. He denies alcohol use. ALLERGIES: INFLUENZA VACCINE. CURRENT MEDICATIONS: Please refer to the medication administration record. REVIEW OF SYSTEMS: Completed to the best of my ability and listed in the HPI. PHYSICAL EXAMINATION: VITAL SIGNS: Temperature 97.8, pulse 89, respirations 14, blood pressure 129/53, and pulse ox 98% on 1 L. Height 5 feet 10 inches and weight 91.2 kg. GENERAL: The patient is alert. Pale. Has a hat over his eyes due to light sensitivity. HEENT: Head normocephalic, atraumatic. Dentures noted. Tongue brown and dry. Lips pink and cracked. Inner bottom lip has scattered white patches. RESPIRATIONS: Even and unlabored. ABDOMEN: Round and soft. EXTREMITIES: +1 pedal pulses. Scant edema noted. Mycotic toenails noted and significant thick mycotic nails to left fingers. Brown staining to left dorsal foot. Obvious left 5th digit amputation. Significant xerosis to the lower extremities. SKIN: Mouth ulcers described above. From head to toe, the patient has scattered ecchymosis to bilateral arms. Left elbow has a small brown scab that measures 0.5 cm width x 0.5 cm length. Blanchable erythema to periwound. No drainage noted. Left posterior upper arm has 2 small circular brown intact scabs. Groin folds have dry, red, scaly plaques. Scrotum is red but intact. Left lateral buttocks pressure ulcer measures 0.5 cm width x 0.5 cm length x 0.2 cm depth. Wound is moist pink. Periwound is intact, but slightly brown and discolored. Scant serous exudate. No induration or fluctuance. To the patient's sacrum, he has a pressure ulcer that measures 0.3 cm width x 0.3 cm length x 0.2 cm depth. Wound bed is pale. Periwound has skin rolling and a callused appearance. Scant serous exudate. Blanchable redness to periwound. Right mid to lower lateral foot has a circular blanchable red area. The patient's right medial heel pressure ulcer measures 0.6 cm width x 0.6 cm length x 0.2 cm depth. Wound is moist pink. Periwound is callused and dry. Very tender to touch. Blanchable erythema to the periwound. PATIENT'S NAME: CHARLI ESPINOZA [facility] AGE: 80 Y [address] ROOM: [address] [address] LOCATION: GPCU ADMIT DATE: 08/15/2016 Consultation DISCHARGE DATE: FAMILY PHYSICIAN: SASHA DU MD ATTENDING PHYSICIAN: MARIPOSA MITCHELL LABORATORY DATA: Hemoglobin A1c 7.0. White blood cell count 4.5, hemoglobin 8.5, hematocrit 26.2, platelets 104. Magnesium 2.5. Cholesterol 164, triglycerides 161. Ferritin 1418.10. Vitamin B12 397. CPK 62, CK-MB 2.9. Troponin I 0.788. Iron 32, TIBC 180. ESR 76. ProBNP 2531. TSH 0.447, free T4 1.1. CRP 8.51. Sodium 142, potassium 4.5, chloride 104, bicarb 29, BUN 58, creatinine 1.8, glucose 143. Albumin 3.1. ASSESSMENT AND PLAN: Again, this is an 80-year-old male patient who was admitted to [facility] with nausea, vomiting, and abdominal pain. Wound Care consult to evaluate and assess pressure ulcers. 1. Right lateral buttocks stage III full-thickness pressure ulcer, present on admission. Wound appears down to subcutaneous tissue. notes that it has been present for months. We will initiate pressure redistribution measures and turn the patient in bed q.2 hours side to side. Reinforced with and the patient. Ordered a dietary consult. Discussed the importance of protein intake. I am concerned about oral nutrition due to mouth herpes. Discussed the importance of liquid protein supplements. The patient has an Iris cushion in his chair. He is on an Isoflex pressure redistribution mattress. We will have nursing apply [place] moisture barrier to the site q.i.d. and p.r.n. stooling to keep wound bed moist. 2. Stage III full-thickness sacral pressure ulcer, present on admission. Pressure redistribution measures were discussed. Nursing will apply [place] to site. The patient currently denies incontinence. 3. Right medial heel stage III full-thickness pressure ulcer, present on admission. Area is tender to touch, surprisingly not fluctuant. We will cover with a Mepilex foam dressing. I instructed nursing to change Sunday, Sunday, and Sunday and p.r.n. saturation. Offloading will be a priority, I ordered bilateral footdrop boots to be on at all times while the patient is in the bed or chair. The patient did have a fair amount of callus buildup to the periwound, but it does not appear he would tolerate any form of paring at this time. 4. Groin dermatitis. Questioning psoriasis, we will treat with hydrocortisone 1% ointment b.i.d. to groin folds x14 days. The patient has had yeast rashes in the past; however, this does not have the typical appearance of that. We will treat with a low potency steroid and continue to monitor. I did update the hospitalist, Dr. Gomez about this rash. 5. Scattered scabs to bilateral arms. We will leave intact. Ordered bilateral elbow protectors for the patient. Discussed trauma prevention. PATIENT'S NAME: CHARLI ESPINOZA [facility] AGE: 80 Y [address] ROOM: [place] [address] LOCATION: [facility] ADMIT DATE: 08/15/2016 Consultation DISCHARGE DATE: FAMILY PHYSICIAN: SASHA DU MD ATTENDING PHYSICIAN: MARIPOSA MITCHELL 6. Type 2 diabetes mellitus. The [facility] Instructed the patient on the importance of daily foot exams. The patient on sliding scale insulin and Levemir. 7. Lower leg xerosis. Scaling and dryness noted. Instructed the patient's to use [place] moisture barrier 2 to 3 times to skin daily. I would like to thank Dr. Mitchell for this consult. CHASIDY AUSTIN APRN FOR MD MARIAH MONSON/donovanl /[id number] d: 08/17/16 0206 t: 08/31/16 1042, CONSULTATION REPORT
--- NOTE | ~2016-08-15 | PUL ---
PATIENT'S NAME: CHARLI ESPINOZA [facility] AGE: 80 Y [address] ROOM: [place] [address] LOCATION: GPCU ADMIT DATE: 08/15/2016 Pulmonary DISCHARGE DATE: 08/19/2016 FAMILY PHYSICIAN: Landon Palacio MD ATTENDING PHYSICIAN: Syed Alba NAME OF PROCEDURE: Overnight Trend Oximetry DATE OF PROCEDURE: August 18 to August 19, 2016 REASON FOR EXAM: Nocturnal hypoxemia RESULTS: Patient underwent overnight trend oximetry saturations ranged from 90 to 100%. Heart rate ranged from 71 to 143 beats per minute. PIA JEAN BAPTISTE MD FEB/ /[id number] dtt: 09/05/16 0826 , Pia Jean Baptiste dtd: 08/22/16 1513
[~2016-08-15 18:00] MED LIST: ALBUTEROL2.5 MG/0.5 INH; AMLODIPINE BESYL5 MG PO; ASPIRIN325 MG PO; BENTYL10 MG PO; BREO ELLIPTA 11 EACH INH; COREG25 MG PO; DELTASONE5 MG PO; DEMADEX20 MG PO; FLOMAX0.4 MG PO; FOLIC ACID0.8 M1 PO; LASIX40 MG PO; LEVEMIR100 UNIT/1 SUB-Q; METHOTREXATE2.5 MG PO; MIRALAX17 GM PO; NORVASC2.5 MG PO; NOVOLOG FL100 UNIT/1 SUB-Q; OMEPRAZOLE40 MG PO; PRED FORTE 1%5 ML OPHTH; TIMOPTIC5 M1 OPHTH; TYLENOL/COD#31 TAB PO; ULORIC80 MG PO; VITAMIN D1000 UNI1 PO; ZOLOFT100 MG PO; ZYLOPRIM300 MG PO
[2016-08-15 18:56] LABS: BICARBONATE 30.9 mmol/L (18.0-23.0); LACTATE 1.6 mEq/L (0.50-1.60); PCO2 51 mmHg (35-45)
[2016-08-15 18:58] LABS: HEMATOCRIT 30.3 % (33.0-50.0); HEMOGLOBIN 9.8 g/dL (11.0-16.0); MCH 32.3 pg (27.0-34.0); MCHC 32.3 gm/dL (32.0-36.5); MPV 9.7 fl (9.4-12.4); PLATELET COUNT 154 K/uL (150-450); RBC 3.03 M/uL (3.50-5.50); RDW-CV 19.6 % (11.9-14.6); WBC 5.4 K/uL (4.0-11.0)
[2016-08-15 18:59] LABS: PO2 38 mmHg (80-90)
[2016-08-15 19:09] LABS: INR - (THERAPEUTIC) 1.02 (0.92-1.07); PROTIME 10.7 SECONDS (9.8-11.4); PTT 26 SECONDS (25-32)
[2016-08-15 19:17] LABS: ALBUMIN 3.1 gm/dL (3.5-5.0); ANION GAP 13.5 (10.0-19.0); CREATININE 1.8 mg/dL (0.6-1.3); MAGNESIUM 2.4 mg/dL (1.8-2.6); POTASSIUM 4.5 mMol/L (3.7-5.1); TOTAL BILIRUBIN 0.5 mg/dL (0.0-1.5); TOTAL PROTEIN 6.7 g/dL (6.0-8.4)
[2016-08-15 19:23] LABS: BILIRUBIN URINE NEGATIVE (NEGATIVE); BLOOD URINE NEGATIVE /UL (NEGATIVE); COLOR URINE YELLOW (YELLOW); GLUCOSE URINE NEGATIVE (NEGATIVE); KETONE URINE NEGATIVE (NEGATIVE); LEUKOCYTES URINE NEGATIVE /UL (NEGATIVE); NITRITE URINE NEGATIVE (NEGATIVE); PROTEIN URINE NEGATIVE (NEGATIVE); TURBIDITY URINE CLEAR (CLEAR); UROBILINOGEN URINE NORMAL (NORMAL)
[2016-08-15 19:33] LABS: ABSOLUTE NEUTROPHIL CT (ANC) 4.3 K/uL (1.4-9.0); BANDED NEUTROPHIL # 0.1 K/uL (0.0-0.1); BANDED NEUTROPHILS % 1 %; LYMPHOCYTE # 0.9 K/uL (0.8-4.0); LYMPHOCYTE % 17 %; MONOCYTE # 0.1 K/uL (0.0-1.0); SEGMENTED NEUTROPHIL # 4.3 K/uL (1.4-9.0); SEGMENTED NEUTROPHIL % 79 %
[2016-08-15] MEDS ORDERED: BUMETANIDE2 MG PO (23:34)
[2016-08-15] MEDS ORDERED: PERIDEX15 ML PO (23:34)
[2016-08-15] MEDS ORDERED: FOLIC ACID 40400 MCG PO (23:35)
[2016-08-15] MEDS ORDERED: VITAMIN D1000 UNI1 PO (23:36)
--- NOTE | 2016-08-16 04:43 | NUR ---
Significant Event:Pt alert and oriented. pleasant with cares and staff, to floor from er at 2300. at bedside, does most of the talking for the patient. pt denies pain when asked. denies n/v. vss upon assesment, does require 1-2 L of o2 per nasal cannul to maintain sats of 94% or greater. pt denies sob, lung sounds clear to diminished. skin is very dry, pale. pt has open area to buttocks, open wound to inside of right ankle, bruising to left inner forearm, pt states he got blood a while ago and that caused the bruisng. pt has trouble seeing, pt is [place]. blood sugars monitored. pt keep hat over eyes, states light bothers them. uses a 4 wheeled walker at home, states he can only use his from home and she will bring it tomorrow. iv to left hand with nacl at 75ml/hr. edema noted to the left ankle/foot. 2 bm this shift. 1 hemocult done, need 2 more. pt has been npo since midnight. Follow up:
[2016-08-16 08:21] LABS: HEMATOCRIT 26.2 % (33.0-50.0); HEMOGLOBIN 8.5 g/dL (11.0-16.0); MCH 32.6 pg (27.0-34.0); MCHC 32.4 gm/dL (32.0-36.5); MCV 100.4 fl (83.0-98.0); MPV 9.1 fl (9.4-12.4); RBC 2.61 M/uL (3.50-5.50); RDW-CV 19.6 % (11.9-14.6); WBC 4.5 K/uL (4.0-11.0)
[2016-08-16 08:47] LABS: MAGNESIUM 2.5 mg/dL (1.8-2.6)
--- NOTE | 2016-08-16 12:05 | NUR ---
A - PT SCREENED D/T MST. PT ASLEEP, SPOKE TO , DEFER NFPE. WEIGH ABOUT 212# COUPLE WEEKS AGO VS CBW OF 201#. POOR APPETITE DUE TO SORE IN THROAT FROM PROCEDURE PER . HAS BEEN EATING SOFT FOOD, 6-7 BOTTLES OF BOOST FOR THE PAST 2 WEEKS. STAGE II PRESSURE ULCER TO L) HIP AREA AND RIGHT FOOT PER H&P, NOT INFECTED. HT: 177.8 CM, WT: 201#, IBW 75 KG, %IBW 122% LABS: GLU 143, BUN 58, CREA 1.8, ALB 3.1, TG 161, PROBNP 2318, A1C 7%, CRP 8.51. MEDS: PERIDEX, ZOLOFT, INSULIN. DIET: NPO AT THIS TIME. EST NEEDS: [id number] KCAL (25-30 KCAL/KG IBW), 90-113 GRAMS (1.2-1.5 GRAMS/KG IBW), FLUID NEEDS: 1ML/KCAL D - INADEQUATE ORAL INTAKE RELATED TO DECREASED APPETITE SECONDARY TO SORE IN THROAT EVIDENCED BY 12# WEIGHT LOSS IN 2 WEEKS PER . I - WILL TRIAL CIB 2X/DAY; ENSURE PUDDING ONCE DAILY. M/E - GOAL: ADVANCE DIET TOLERATED IN 2-4 DAYS AND TOLERATE >50% OF MEALS AND AT LEAST ONE ORAL SUPPLEMENT PER DAY.
[2016-08-16] MEDS ORDERED: K-TAB ER20 MEQ PO (13:49)
--- NOTE | 2016-08-16 19:16 | NUR ---
Significant Event: SBP 110-130'S. NSR RATES 80'S. AFEBRILE. ON RA WHILE AWAKE WITH 1L/NC SUPPLIED WHILE SLEEPING D/T SATS MID-80'S. CLEAR/DIM LUNG SOUNDS. NO C/O ABD PAIN, NAUSEA OR VOMITING THIS SHIFT. GI CONSULT WITH NO NEW ORDERS, AWAITING CARDS CONSULT. DR Farias SEEING FOR ELEVATED TROPONIN WITH REPEAT TN-I AND EKG IN AM. WOC SEEN FOR SORES TO R) ANKLE, LEFT HIP AND BUTTOCKS, WELL SORES TO MOUTH AND LIPS, REDNESS TO BILATERAL GROINS. MEPILEX TO R) ANKLE WITH ORDERS TO CHANGE M-W-F AND PRN. BILATERAL ELBOW PROTECTORS AND FOOT DROP BOOTS COMING FROM [employer]. ALOE TO BUTTOCKS/COCCYX. REPOSITION Q2HR. PT/OT SEEING. HEAVY 2-3 ASSIST WITH WALKER FOR TRANSFERS. NO BM TODAY. CABALLERO TO DD WITH 1100ML UOP. ACCUCHECKS ACHS WITH INSULIN 18 UNITS TID. LEVEMIR AT HS. L) HAND PIV WITH NS AT 50ML/HR. AT BEDSIDE. SOLA CURIEL TO SEE TOMORROW REGARDING PLACEMENT. DIETARY CONSULT TO SEE TOMORROW. TOLERATING FOODS WITH NO DIFFICULTY. Follow up: DIETARY CONSULT TOMORROW. LABS AND EKG IN AM. CREAM TO BILATERAL GROINS WITH ELBOW PROTECTORS AND FOOT DROP BOOTS BEING SUPPLIED FROM . EXIT ALARMS ON. ACCUCHECKS ACHS. TURN Q2HR.
[2016-08-17 03:50] LABS: BASOPHIL % 0.5 %; EOSINOPHIL # 0.1 K/uL (0.0-0.5); EOSINOPHIL % 1.8 %; HEMATOCRIT 26.5 % (33.0-50.0); HEMOGLOBIN 8.6 g/dL (11.0-16.0); LYMPHOCYTE # 0.9 K/uL (0.8-4.0); LYMPHOCYTE % 24.1 %; MCH 33.2 pg (27.0-34.0); MCHC 32.5 gm/dL (32.0-36.5); MCV 102.3 fl (83.0-98.0); MONOCYTE # 0.2 K/uL (0.0-1.0); MONOCYTE % 5.5 %; MPV 9.4 fl (9.4-12.4); NEUTROPHIL # (ANC) 2.6 K/uL (1.4-9.0); NEUTROPHIL % 67.1 %; NRBC % 0 /100WBC (0-0.00); PLATELET COUNT 86 K/uL (150-450); RBC 2.59 M/uL (3.50-5.50); RDW-CV 19.6 % (11.9-14.6); WBC 3.8 K/uL (4.0-11.0)
[2016-08-17 04:05] LABS: ANION GAP 11.6 (10.0-19.0); CALCIUM 8.2 mg/dL (8.5-10.5); CREATININE 1.5 mg/dL (0.6-1.3); MAGNESIUM 2.4 mg/dL (1.8-2.6); PHOSPHORUS 2.9 mg/dL (2.5-4.9); POTASSIUM 3.6 mMol/L (3.7-5.1)
--- NOTE | 2016-08-17 04:50 | NUR ---
Significant Event:A/Ox3. VSS on 1L/NC. Heavy 2 assist with gait belt and walker up to bedside commode. No BM just smear. Lezama to DD with 565ml yellow output. PIV infusing with no complications. Foot drop boots/elbow protectors placed on patient per WOC orders. Patient refused mouth rinse. BG this AM from labs 51 had patient drink 2 apple juices pending BG check. Follow up:Continue to monitor, EKG this AM.
--- NOTE | 2016-08-17 10:42 | NUR ---
CONSULT FOR PRESSURE ULCERS RECEIVED. PER H&P, STAGE III PRESSURE ULCER TO RIGHT BUTTOCK AND RIGHT HEEL. INTAKE 100% YESTERDAY DINNER. DISLIKES CIB AND YET TO TRY ENSURE PUDDING. PER , PATIENT HAS BEEN EATING WELL. EXPLAINED THE IMPORTANCE FOR NUTRITION/PROTEIN FOR WOUNDS HEALING. OFFERED GLUCERNA, PT AGREED TO TRY. WILL D/C CIB, ADDING GLUCERNA BID AND ENSURE PUDDING ONCE DAILY. WILL CONTINUE TO FOLLOW.
--- NOTE | 2016-08-17 12:15 | NUR ---
Introduced self and role of care management to patient and his . [place] near [place]. She says they built their home a few years ago and it is w/c accessible and set up well for them. She says he takes a few steps with the walker, but uses the w/c most of the time. She says she also has lift at home if needed. He has HHC services through [facility]. He also has caregivers/help through [facility] 2 days a week. She says the caregiver comes 2 days a week for 3 hours and helps with bathing, etc. She says she also is able to come another 6 hours a week on an "urgent" basis if needed. Talked to them about skilled care. says they both lived at [place] for a couple of months when their home was being built. She says she will take him home, he will not go to a longterm. They say the plan is home when ready for discharge with HHC. Will follow.
--- NOTE | 2016-08-17 17:35 | NUR ---
Significant Event: A/Ox3. legally blind. VSS on room air while awake and 1L while alseep. Need hematest x1. Planning left heart cath for tomorrow AM. Patient may have a clear liquid breakfast at 0600 then NPO. Prodecure is planned for 1500. Permits signed by HERSON. Up with heavy 2A. Teja d/c'd today. Patient has voided since. BM x1. AC/HS.
--- NOTE | 2016-08-18 04:47 | NUR ---
Significant Event: Patient is alert/oriented x3. Visually impaired, says he's legally blind. Attempted to get patient up with 2PA, but patient was very unsteady and unable to properly follow directions and stand up straight. Patient was assisted back to bed from [facility] with 3PA. Afterwards, sling and overhead lift were used to safely transfer patient. Denies any pain. No nausea or vomiting. Patient is currently NPO except for clear liquids. Follow up: Heart cath today at 1500.
[2016-08-18 08:25] LABS: BASOPHIL % 0.3 %; EOSINOPHIL # 0.1 K/uL (0.0-0.5); EOSINOPHIL % 3.9 %; HEMATOCRIT 27.4 % (33.0-50.0); HEMOGLOBIN 8.6 g/dL (11.0-16.0); IMMATURE GRANULOCYTE # 0.1 K/uL (0.0-0.3); IMMATURE GRANULOCYTE % 2.2 %; LYMPHOCYTE # 0.8 K/uL (0.8-4.0); LYMPHOCYTE % 23.2 %; MCH 32.3 pg (27.0-34.0); MCHC 31.4 gm/dL (32.0-36.5); MONOCYTE # 0.3 K/uL (0.0-1.0); MONOCYTE % 8.4 %; MPV 9.1 fl (9.4-12.4); NEUTROPHIL # (ANC) 2.2 K/uL (1.4-9.0); NRBC % 0 /100WBC (0-0.00); PLATELET COUNT 74 K/uL (150-450); RBC 2.66 M/uL (3.50-5.50); RDW-CV 19.9 % (11.9-14.6); WBC 3.6 K/uL (4.0-11.0)
[2016-08-18 08:28] LABS: ANION GAP 13.2 (10.0-19.0); CALCIUM 8.5 mg/dL (8.5-10.5); CREATININE 1.4 mg/dL (0.6-1.3); MAGNESIUM 2.3 mg/dL (1.8-2.6); POTASSIUM 4.2 mMol/L (3.7-5.1)
--- NOTE | 2016-08-18 11:30 | NUR ---
Called and spoke with Jaquelin with [facility]. Updated her on patient probably going home tomorrow. She says patient has only been receiving penitent[facility] services at home, but can begin therapies if ordered. Spoke with patient's as patient is resting. Talked with her about [facility] if she wanted him to have therapy also. She says he has had therapy in the past, but she feels she is able to do the same things with him that therapy would do. She does want [facility] nursing to continue and says he [facility]. She says she will talk to him and if he wants therapy at home she will let me know. Notes on chart for nursing to call Jaquelin [facility] at [phone] when discharging to let them know when he is going home. Also discharge order form and discharge instructions need faxed to [facility] at [phone] (fax sheet on chart). Plan is for patient to go home with [facility] services. Will follow.
--- NOTE | 2016-08-18 17:10 | NUR ---
Significant Event: A/Ox3. [id number]. P-80s. SR. Afebrile. Room air while awake and 1L with naps. R) AFA saline locked. L) hand Iv infusing integerlin 2mc/kg/min until 2100, NS at 100ml/hr x 750ml. R) groin heart cath, stent to the RCA. Soft no eccymosis. CMS WNL. We are to let pressure out of femstop x5min per hour then reinsert 60mmHg. Bleeding post cath in the mouth from ulcerations. Suction at bedside for oral cares. MD aware of bleeding. CBC to be called to Dr. Farias at 1900. Femstop off at 2100 and off bedrest at 0300. Up with heavy 2A/walker. Pleasant and cooperative with cares.
[2016-08-18 18:59] LABS: BASOPHIL % 0.3 %; EOSINOPHIL # 0.1 K/uL (0.0-0.5); EOSINOPHIL % 3.5 %; HEMATOCRIT 24.7 % (33.0-50.0); HEMOGLOBIN 8.1 g/dL (11.0-16.0); IMMATURE GRANULOCYTE # 0.1 K/uL (0.0-0.3); IMMATURE GRANULOCYTE % 1.3 %; LYMPHOCYTE # 0.8 K/uL (0.8-4.0); LYMPHOCYTE % 22.1 %; MCH 32.7 pg (27.0-34.0); MCHC 32.8 gm/dL (32.0-36.5); MCV 99.6 fl (83.0-98.0); MONOCYTE # 0.3 K/uL (0.0-1.0); MONOCYTE % 6.6 %; NEUTROPHIL # (ANC) 2.5 K/uL (1.4-9.0); NEUTROPHIL % 66.2 %; NRBC % 0 /100WBC (0-0.00); RBC 2.48 M/uL (3.50-5.50); RDW-CV 19.9 % (11.9-14.6); WBC 3.8 K/uL (4.0-11.0)
[2016-08-18 19:02] LABS: PLATELET COUNT 99 K/uL (150-450)
--- NOTE | 2016-08-19 04:28 | NUR ---
Significant Event: A/O, SBP 100-110s, RA, trend ox done, R)groin dry/soft, gauze/tegaderm intact, off bedrest at 0300, recieved 1 unit PRBC, ulcers to mouth continue to bleed, frequent oral cares, assisting with cares, denies pain, no coverage needed for accucheck Follow up: home today with home health?
[2016-08-19 06:50] LABS: BASOPHIL % 0.2 %; EOSINOPHIL # 0.2 K/uL (0.0-0.5); EOSINOPHIL % 2.9 %; HEMATOCRIT 28.2 % (33.0-50.0); HEMOGLOBIN 9.1 g/dL (11.0-16.0); IMMATURE GRANULOCYTE # 0.1 K/uL (0.0-0.3); IMMATURE GRANULOCYTE % 1.1 %; LYMPHOCYTE % 16.8 %; MCH 32.3 pg (27.0-34.0); MCHC 32.3 gm/dL (32.0-36.5); MONOCYTE # 0.6 K/uL (0.0-1.0); MONOCYTE % 10.3 %; MPV 9.9 fl (9.4-12.4); NEUTROPHIL # (ANC) 4.3 K/uL (1.4-9.0); NEUTROPHIL % 68.7 %; NRBC % 0 /100WBC (0-0.00); PLATELET COUNT 77 K/uL (150-450); RBC 2.82 M/uL (3.50-5.50); RDW-CV 19.9 % (11.9-14.6); WBC 6.2 K/uL (4.0-11.0)
[2016-08-19 07:08] LABS: ALBUMIN 2.5 gm/dL (3.5-5.0); CALCIUM 8.1 mg/dL (8.5-10.5); CREATININE 1.4 mg/dL (0.6-1.3); TOTAL PROTEIN 5.4 g/dL (6.0-8.4)
[2016-08-19 07:10] LABS: TOTAL BILIRUBIN 0.7 mg/dL (0.0-1.5)
[2016-08-19] MEDS ORDERED: LIPITOR80 MG PO (11:16)
[2016-08-19] MEDS ORDERED: ASPIRIN (CHILDR81 MG PO (11:16)
[2016-08-19] MEDS ORDERED: ABREVA (11:27)
[2016-08-19] MEDS ORDERED: HYDROCORT 1% CR30 GM TOP (11:31)
[2016-08-19] MEDS ORDERED: BRILINTA90 MG PO (11:36)
--- NOTE | 2016-08-19 14:58 | NUR ---
DISCHARGE: ALERT AND ORIENTED X3, FORGETFUL. BLIND. VSS. ROOM AIR. DENIES PAIN. BLEEDING SORES TO MOUTH AND LIPS. LIP BALM AND ABREVA APPLIED TO LIPS. IV TO RIGHT WRIST AND LEFT HAND REMOVED. UP WITH 1-2 ASSIST, GB AND WALKER. BM X1. VOIDS WELL. DISCHARGE INSTRUCTIONS GIVEN TO . NEW MEDICATIONS REVIEWED AND EMPHASIS ABOUT TAKING [place] AND NOT STOPPING WITHOUT PERMISSION FROM POWER ORIGINATOR. DISCUSSED THE NEED TO SET UP F/U APPOINTMENTS. NO FURTHER QUESTIONS. TAKEN TO [facility] BY WHEELCHAIR BY RN AND POOL MANAGER AT 1245 FOR DISCHARGE HOME WITH HOME HEALTH.
[2016-09-11] MEDS ORDERED: FOLIC ACID1 MG PO (14:56)
== END 2016-08-19 12:50 | disposition home health service (06) | DRG 246 ==
LOC: GMED 18:00 → GPCU 22:33
PROVIDERS: Emergency Medicine; Hospitalist; Internal Medicine Interventional Cardiology; ADMIT Internal Medicine
PROC: B246ZZZ Ultrasonography of Right and Left Heart (ICD-10-PCS; principal; 2016-08-16)
PROC: 02713EZ Dilation of Coronary Artery, Two Arteries with Two Intraluminal Devices, Percutaneous Approach (ICD-10-PCS; 2016-08-18)
PROC: 4A023N7 Measurement of Cardiac Sampling and Pressure, Left Heart, Percutaneous Approach (ICD-10-PCS; 2016-08-18)
PROC: 027034Z Dilation of Coronary Artery, One Artery with Drug-eluting Intraluminal Device, Percutaneous Approach (ICD-10-PCS; 2016-08-18)
PROC: 30233N1 Transfusion of Nonautologous Red Blood Cells into Peripheral Vein, Percutaneous Approach (ICD-10-PCS; 2016-08-18)
PROC: B2111ZZ Fluoroscopy of Multiple Coronary Arteries using Low Osmolar Contrast (ICD-10-PCS; 2016-08-18)
DX: I21.4 Non-ST elevation (NSTEMI) myocardial infarction (principal); D61.810 Antineoplastic chemotherapy induced pancytopenia; J96.01 Acute respiratory failure with hypoxia; N17.9 Acute kidney failure, unspecified; L89.153 Pressure ulcer of sacral region, stage 3; I13.0 Hypertensive heart and chronic kidney disease with heart failure and stage 1 through stage 4 chronic kidney disease, or unspecified chronic kidney disease; N18.3 Chronic kidney disease, stage 3 (moderate); I50.9 Heart failure, unspecified; L89.613 Pressure ulcer of right heel, stage 3; L89.323 Pressure ulcer of left buttock, stage 3; B00.1 Herpesviral vesicular dermatitis; E11.21 Type 2 diabetes mellitus with diabetic nephropathy; E11.649 Type 2 diabetes mellitus with hypoglycemia without coma; E78.5 Hyperlipidemia, unspecified; F32.9 Major depressive disorder, single episode, unspecified; H35.00 Unspecified background retinopathy; E11.22 Type 2 diabetes mellitus with diabetic chronic kidney disease; Z66 Do not resuscitate; D63.1 Anemia in chronic kidney disease
CPT/HCPCS: C1725; C1757; C1760; C1769; C1874; C1876; C1887; C9113; C9600; J0461; J0583; J0834; J1327; J1644; J2250; J2405; J3010; J7030; J7050; J7060; P9016

== ENCOUNTER 2016-08-25 11:58 | Emergency (ER) | payer MEDICARE ==
--- NOTE | ~2016-08-25 | ER ---
PATIENT'S NAME: [facility] AGE: 80 Y [address] ROOM: [place] [address] LOCATION: ED ADMIT DATE: 08/25/2016 ER/Outpatient Report DISCHARGE DATE: 08/25/2016 FAMILY PHYSICIAN: Landon Palacio MD ATTENDING PHYSICIAN: Yimi Sharma Time of Arrival: 1158 hours. Time of Evaluation: 1205 hours. CHIEF COMPLAINT: Abdominal pain. HISTORY OF PRESENT ILLNESS: The patient was seen and evaluated in Dr. Palacio's office. He was sent down here for further evaluation, treatment, and management. He does report a low- grade fever of 99. He denies any nausea or vomiting. He does have some constipation. Last bowel movement was today. No blood in the stool. No dark tarry stools. Denies any urinary frequency, urgency, or painful urination. Pain is currently 0/10 in severity. PAST MEDICAL HISTORY: Dyslipidemia, BPH, coronary artery disease, congestive heart failure, non- insulin-dependent diabetes, hypertension, muscular atrophy, COPD, and OK. The patient did recently undergo stenting. PAST SURGICAL HISTORY: 1. Right upper endoscopy and colonoscopy. 2. He is status post stent to heart in 2002, 2006, and 2016. 3. Bilateral hydrocele. 4. Polypectomy and colectomy. 5. Left rotator cuff. 6. 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 SOCIAL HISTORY: The patient is . Denies any current tobacco use. Former smoker. Denies any alcohol or illicit drug use. FAMILY HISTORY: Coronary artery disease. ALLERGIES: TO INFLUENZA VACCINE. MEDICATIONS: PATIENT'S NAME: [facility]LI [facility] AGE: 80 Y [address] ROOM: [place], [place] [address] LOCATION: ED ADMIT DATE: 08/25/2016 ER/Outpatient Report DISCHARGE DATE: 08/25/2016 FAMILY PHYSICIAN: Landon Palacio MD ATTENDING PHYSICIAN: Yimi Sharma Please see list. PRIMARY CARE DOCTORS: Dr. Palacio. REVIEW OF SYSTEMS: All systems are reviewed by myself and are negative with the exception of those discussed in the HPI and past medical history. PHYSICAL EXAMINATION: VITAL SIGNS: Weight 89.6 kg, blood pressure 159/70, pulse 89, respiratory rate 20, temperature 98.6, oxygen saturation 96% on room air. GENERAL: The patient is an 80-year-old male, who appears stated age, in no acute distress at this time. HEENT: Head: Normocephalic, atraumatic. Pupils are equal, round, and reactive to light. Oropharynx is clear. NECK: Supple. There is no nuchal rigidity. CARDIOVASCULAR: Regular rate and rhythm. LUNGS: Clear to auscultation bilaterally. ABDOMEN: Soft. Mild diffuse tenderness to palpation. There is no rebound, rigidity, or guarding. Positive bowel sounds. MUSCULOSKELETAL: The patient does have weakness in all 4 extremities. does report this is normal. SKIN: Warm and dry. DIAGNOSTIC STUDIES: Labs and x-rays are obtained. CBC is unremarkable, except for hemoglobin of 8.5, hematocrit 26.5, this is stable. Lactate is normal. CMP unremarkable, except for BUN 33, creatinine 1.5. CK is normal. CK-MB is normal. Troponin is 0.491. This continues to trend down from his recent stenting. Lipase is normal. Coags are unremarkable. Procalcitonin is unremarkable. Urinalysis is unremarkable. CT scan of the abdomen and pelvis is obtained. I have discussed the results with the radiologist. There is no evidence of acute process noted. EKG does show sinus rhythm with a rate of 88, left axis deviation, MS interval of 223. No ST elevation or ST depression. There is no significant change. IMPRESSION: 1. Acute nonsurgical diffuse generalized abdominal pain, unclear etiology. 2. Chronic anemia. 3. Trending downward elevated troponin. 4. Initial visit. PATIENT'S NAME: [facility]LI [facility] AGE: 80 Y [address] ROOM: [place], [place] [address] LOCATION: [facility] ADMIT DATE: 08/25/2016 ER/Outpatient Report DISCHARGE DATE: 08/25/2016 FAMILY PHYSICIAN: Landon Palacio MD ATTENDING PHYSICIAN: Yimi Sharma EMERGENCY DEPARTMENT COURSE: The patient brought back to the examination room. Seen and evaluated by myself. IV is established. Laboratory analysis and imaging are obtained, described above. I have discussed the results with the patient and his . I have discussed the results with Dr. Palacio. He did write dicyclomine for home. I have discussed following up with Dr. Palacio for re-evaluation in two days. I have discussed returning to the emergency department for any continued or worsening abdominal pain or any other concerns for re-evaluation. The patient is agreeable, is agreeable, and Dr. Palacio is agreeable. The patient and his are without further questions at this time. DISPOSITION: The patient discharged home in good condition. DO ABHI ORTIZ/donovanl /[id number] d: 08/25/16 2339 t: 08/28/16 0859, OUTPATIENT REPORT
[~2016-08-25 11:58] MED LIST changes: +ABREVA; +ASPIRIN (CHILDR81 MG PO; +BRILINTA90 MG PO; +BUMETANIDE2 MG PO; +FOLIC ACID 40400 MCG PO; +HYDROCORT 1% CR30 GM TOP; +K-TAB ER20 MEQ PO; +LIPITOR80 MG PO; +PERIDEX15 ML PO
[2016-08-25 12:46] LABS: BASOPHIL % 0.2 %; EOSINOPHIL # 0.3 K/uL (0.0-0.5); EOSINOPHIL % 3.8 %; HEMATOCRIT 26.5 % (33.0-50.0); HEMOGLOBIN 8.5 g/dL (11.0-16.0); IMMATURE GRANULOCYTE # 0.1 K/uL (0.0-0.3); IMMATURE GRANULOCYTE % 0.7 %; LYMPHOCYTE # 1.3 K/uL (0.8-4.0); LYMPHOCYTE % 15.9 %; MCH 32.7 pg (27.0-34.0); MCHC 32.1 gm/dL (32.0-36.5); MCV 101.9 fl (83.0-98.0); MONOCYTE # 1.1 K/uL (0.0-1.0); MONOCYTE % 13.4 %; MPV 9.4 fl (9.4-12.4); NEUTROPHIL # (ANC) 5.3 K/uL (1.4-9.0); NRBC % 0 /100WBC (0-0.00); RDW-CV 19.9 % (11.9-14.6); WBC 8.1 K/uL (4.0-11.0)
[2016-08-25 12:47] LABS: PLATELET COUNT 208 K/uL (150-450)
[2016-08-25 12:53] LABS: INR - (THERAPEUTIC) 1.11 (0.92-1.07); PROTIME 11.7 SECONDS (9.8-11.4); PTT 32 SECONDS (25-32)
[2016-08-25 13:15] LABS: ALBUMIN 2.8 gm/dL (3.5-5.0); ANION GAP 14.8 (10.0-19.0); CALCIUM 8.1 mg/dL (8.5-10.5); CREATININE 1.5 mg/dL (0.6-1.3); POTASSIUM 3.8 mMol/L (3.7-5.1); TOTAL BILIRUBIN 0.7 mg/dL (0.0-1.5); TOTAL PROTEIN 5.8 g/dL (6.0-8.4)
[2016-08-25 13:50] LABS: BILIRUBIN URINE NEGATIVE (NEGATIVE); BLOOD URINE 10 /UL (NEGATIVE); GLUCOSE URINE NEGATIVE (NEGATIVE); KETONE URINE NEGATIVE (NEGATIVE); LEUKOCYTES URINE 25 /UL (NEGATIVE); NITRITE URINE NEGATIVE (NEGATIVE); PROTEIN URINE 30 mg/dL (NEGATIVE); UROBILINOGEN URINE NORMAL (NORMAL)
[2016-08-25 14:04] LABS: COLOR URINE YELLOW (YELLOW); TURBIDITY URINE 1+ (CLEAR)
[2016-08-25 14:07] LABS: BACTERIA URINE FEW (NEGATIVE); EPITHELIAL URINE RARE #/HPF (NEGATIVE); RBC URINE 0-2 #/HPF (NEGATIVE)
[2016-09-11] MEDS ORDERED: FOLIC ACID1 MG PO (14:56)
== END 2016-08-25 15:25 | disposition disaster alternative care site (69) ==
LOC: GMED 11:58
PROVIDERS: Emergency Medicine
DX: R10.84 Generalized abdominal pain (principal); R79.89 Other specified abnormal findings of blood chemistry; D64.9 Anemia, unspecified; Z88.7 Allergy status to serum and vaccine; Z87.891 Personal history of nicotine dependence; Z98.890 Other specified postprocedural states; Z95.5 Presence of coronary angioplasty implant and graft; Z90.49 Acquired absence of other specified parts of digestive tract; Z89.422 Acquired absence of other left toe(s)

== ENCOUNTER → 2016-08-30 | Outpatient (CLI) | payer MEDICARE ==
[~2016-08-30] MED LIST changes: +FOLIC ACID1 MG PO
[2016-08-30 13:01] LABS: ANION GAP 10.7 (10.0-19.0); CALCIUM 8.4 mg/dL (8.5-10.5); CREATININE 1.6 mg/dL (0.6-1.3); POTASSIUM 3.7 mMol/L (3.7-5.1)
== END ==
LOC: LGSOS 12:21
PROVIDERS: Internal Medicine Interventional Cardiology
DX: R42 Dizziness and giddiness (principal)

== ENCOUNTER → 2016-09-11 | Outpatient (CLI) | payer MEDICARE | END | disposition disaster alternative care site (69) | LOC: GPOC 14:05 → GOPP 14:05 → GPOC 14:15 | DX: M60.9 Myositis, unspecified (principal); Z86.2 Personal history of diseases of the blood and blood-forming organs and certain disorders involving the immune mechanism | CPT/HCPCS: J2001; J7040; P9016 ==